=== PATIENT | male | born 1990 | race Two or more races ===

== ENCOUNTER 2025-02-24 01:24 | Emergency (ER) | payer OTHER ==
[~2025-02-24] VITALS: Ht 170.2 cm; Wt 84.1 kg
[2025-02-24] MEDS ORDERED: DIPH25CA66 PO (01:48)
--- NOTE | 2025-02-24 01:48 | ED.PDOC ---
History of Present Illness HPI Comments Patient is a 34-year-old male who was brought to the ED by EMS due to concerns of multiple bee stings proximally 1/2 hour prior to arrival. Patient states he lives going home when he came across a bee hive and got stung numerous times about his chest back and head. Quick evaluation was unremarkable for any bee stings or retained stingers in the torso. Patient appears diaphoretic and may be on methamphetamine. Chief Complaint: Anxiety Time Seen by MD: 01:35 Reviewed Notes: Nurses Notes, Clerical Office Worker Notes Allergies: Coded Allergies: NO KNOWN ALLERGIES (Unverified , 02/24/25) Home Meds Active Scripts Ondansetron Odt 4MG Tab (ZOFRAN PO) 4 Mg Tb, 4 MG PO TID PRN, #20 TAB Prn nausea/vomiting ODT TAB-DISSOLVE IN MOUTH, THEN SWALLOW Prov:ANGIE BREEN MD 02/24/25 Diphenhydramine Hcl (Benadryl Allergy) 25 Mg Cap, 1 CAP PO Q8HP PRN, #20 CAP 0 Refills Prov:DELMAR SALDIVAR PAC 02/24/25 Information Source: Patient, Emergency Med Personnel Mode of Arrival: EMS Severity: Moderate Timing: Minutes Duration: Since onset Prehospital treatment: Treatment Past Medical History PAST MEDICAL HISTORY: Denies Surgical History: Denies all surgeries Family History Family History: Reviewed,noncontributory to illness, No family hx of Cancer, No family hx of DM, No family hx of Heart lizzy, No family hx of HTN, No family hx ofKidney lizzy, No family hx of Liver lizzy, No family hx of Lung lizzy, No family hx of Stroke Social History Smoker: Non-Smoker Alcohol: Denies ETOH Use Drugs: Denies Drug Use Lives In: Home Constitutional: denies: chills, diaphoresis, fatigue, fever, malaise, sweats, weakness, others EENTM: denies: blurred vision, double vision, ear bleeding, ear discharge, ear drainage, ear pain, ear ringing, eye pain, eye redness, hearing loss, mouth pain, mouth swelling, nasal discharge, nose bleeding, nose congestion, nose pa in, photophobia, tearing, throat pain, throat swelling, voice changes, others Respiratory: denies: cough, hemoptysis, orthopnea, SOB at rest, shortness of breath, SOB with excertion, stridor, wheezing, others Cardiovascular: denies: chest pain, dizzy spells, diaphoresis, Dyspnea on exertion, edema, irregular heart beat, left arm pain, lightheadedness, palpitations, PND, syncope, others Gastrointestinal: denies: abdomen distended, abdominal pain, blood streaked bowels, constipated, diarrhea, dysphagia, difficulty swallowing, hematemesis, melena, nausea, poor appetite, poor fluid intake, rectal bleeding, rectal pain, vomiting, others Genitourinary: denies: burning, dysuria, flank pain, frequency, hematuria, incontinence, penile discharge, penile sore, pain, testicle pain, testicle swelling, urgency, others Neurological: denies: dizziness, fainting, headache, left sided numbness, left sided weakness, numbness, paresthesia, pre-existing deficit, right sided numbness, right sided weakness, seizure, speech problems, tingling, tremors, weakness, others Musculoskeletal: denies: back pain, gout, joint pain, joint swelling, muscle pain, muscle stiffness, neck pain, others Integumetry: reports: others (Bee stings to chest, back and head.); denies: bruises, change in color, change in hair/nails, dryness, laceration, lesions, lumps, rash, wounds Allergic/Immunocompromised: denies: Difficulty Healing, Frequent Infections, Hives, Itching, others Hematologic/Lymphatic: denies: anemia, blood clots, easy bleeding, easy bruising, swollen glands, others Endocrine: denies: excessive hunger, excessive sweating, excessive thirst, excessive urination, flushing, intolerance to cold, intolerance to heat, unexplained weight gain, unexplained weight loss, others Psychiatric: denies: anxiety, bipolar disorder, depression, hopeless, panic disorder, schizophrenia, sleepless, suicidal, others Physical Exam General Appearance: Moderate Distress ([id number] distress at time of evaluation. Patient appears very anxious. Patient may be on methamphetamines.), Normal HEENT: Normal ENT Inspection, Pharynx Normal, TMs Normal Neck: Full Range of Motion, Non-Tender, Normal, Normal Inspection Respiratory: Chest Non-Tender, Lungs Clear, No Accessory Muscle Use, No Respiratory Distress, Normal Breath Sounds Cardiovascular: No Edema, No JVD, No Murmur, No Gallop, Normal Peripheral Pulses, Regular Rate/Rhythm Breast Exam: Deferred Gastrointestinal: No Organomegaly, Non Tender, No Pulsatile Mass, Normal Bowel Sounds, Soft Genitalia: Deferred Pelvic: Deferred Rectal: Deferred Extremities: No calf tenderness, Normal capillary refill, Normal inspection, Normal range of motion, Non-tender, No pedal edema Neurologic: Alert, No Motor Deficits, Normal Affect, Normal Mood, No Sensory Deficits Cerebellar Function: NOT DONE Reflexes: NOT DONE Skin: Other (She was unremarkable for any signs of bee stings or retained stingers throughout the chest, back or head.) Lymphatic: No Adenopathy Was a procedure done? Was a procedure done?: No Differential Dx Considerations may include: [place], allergic reaction, anxiety X-Ray, Labs, Meds, VS Vital Signs Date Time Temp Pulse Resp B/P (MAP) Pulse Ox O2 Delivery O2 Flow Rate FiO2 02/24/25 06:07 50 21 95 Nasal Cannula 3.0 02/24/25 04:49 97.8 50 21 130/57 (81) 95 97.8 02/24/25 02:35 67 18 134/66 (88) 97 02/24/25 01:32 98.1 80 18 139/91 98 98.1 Current Medications Medications (Trade) Dose Ordered Sig/Luis Daniel Route Start Time Stop Time Status Last Admin Dexamethasone Sodium Phosphate (Decadron Injection) 10 mg ONCE ONCE IM 02/24/25 01:45 02/24/25 01:46 DC 02/24/25 02:45 Metoclopramide HCl (Reglan Injection) 10 mg ONCE ONCE IM 02/24/25 01:45 02/24/25 01:46 DC 02/24/25 02:45 Diphenhydramine HCl (Benadryl Injection) 25 mg ONCE ONCE IM 02/24/25 01:45 02/24/25 01:46 DC 02/24/25 02:44 Sodium Chloride 2,000 ml @ 1,000 mls/hr Q2H ONCE IV 02/24/25 05:00 02/24/25 06:09 DC 02/24/25 05:08 Ondansetron HCl (Zofran) 8 mg ONCE ONCE IV 02/24/25 05:00 02/24/25 05:01 DC 02/24/25 05:07 Lorazepam (Ativan Inj) 1 mg ONCE ONCE IV 02/24/25 05:00 02/24/25 05:01 DC 02/24/25 05:08 X-Ray, Labs, Meds, VS Comment Patient was given a dose of dexamethasone and a shot of Toradol as well as Benadryl. Patient will remain in the ED until he is stable then can be discharged home with a prescription medication. Addendum by Dr. Janelle Reyes: On re-evaluation, patient was having nausea, vomiting and persistent anxiety. I ordered the following for the patient: 2 L 0.9 normal saline IV bolus, Zofran 8 mg IV, Ativan 1 mg IV, with improvement of the patient's symptoms. Time of 1ST Reevaluation: 01:46 Reevaluation 1ST: Improved Consultation: PCP Patient Education/Counseling: Diagnosis, Treatment Family Education/Counseling: Diagnosis, Treatment SEPSIS Sepsis Screen Date sepsis recognized/suspect: Feb 24, 2025 Time Sepsis recognized/suspect: 012 Recent Procedure: No On Antibiotic Therapy: No Respiratory Rate >20: No Heart Rate >90: No Temp<36 C (96.8 F) or >38.3 C: No SBP <90 or MAP <65 mmHG: No New Acute Mental Status Change: No Is the patient on CPAP, BIPAP,: No Vital Signs Date Time Temp Pulse Resp B/P (MAP) Pulse Ox O2 Delivery O2 Flow Rate FiO2 02/24/25 06:07 50 21 95 Nasal Cannula 3.0 02/24/25 04:49 97.8 50 21 130/57 (81) 95 97.8 02/24/25 02:35 67 18 134/66 (88) 97 02/24/25 01:32 98.1 80 18 139/91 98 98.1 Medications Medications Dose Ordered Sig/Luis Daniel Route Start Time Stop Time Status Last Admin Dose Admin Dexamethasone Sodium Phosphate 10 mg ONCE ONCE IM 02/24/25 01:45 02/24/25 01:46 DC 02/24/25 02:45 Diphenhydramine HCl 25 mg ONCE ONCE IM 02/24/25 01:45 02/24/25 01:46 DC 02/24/25 02:44 Lorazepam 1 mg ONCE ONCE IV 02/24/25 05:00 02/24/25 05:01 DC 02/24/25 05:08 Metoclopramide HCl 10 mg ONCE ONCE IM 02/24/25 01:45 02/24/25 01:46 DC 02/24/25 02:45 Ondansetron HCl 8 mg ONCE ONCE IV 02/24/25 05:00 02/24/25 05:01 DC 02/24/25 05:07 Sodium Chloride 2,000 ml @ 1,000 mls/hr Q2H ONCE IV 02/24/25 05:00 02/24/25 06:09 DC 02/24/25 05:08 Departure 1 Departure Time of Disposition: 01:47 Impression: Primary Impression: Bee sting Additional Impression: Anxiety Disposition: HOME / SELF CARE / HOMELESS Condition: Stable Additional Instructions: Advise utilizing Benadryl as needed for symptomatic relief. e-Prescriptions Ondansetron Odt 4MG Tab (ZOFRAN PO) 4 Mg Tb 4 MG PO TID PRN, #20 TAB Prn nausea/vomiting ODT TAB-DISSOLVE IN MOUTH, THEN SWALLOW Prov: ANGIE BREEN MD 02/24/25 Diphenhydramine Hcl (Benadryl Allergy) 25 Mg Cap 1 CAP PO Q8HP PRN, #20 CAP 0 Refills Prov: DELMAR SALDIVAR PAC 02/24/25 Discharged With: Self, Friend Critical Care Note Critical Care Time?: No Stability Stability form required: No Heart Score Heart Score: Heart Score Response (Comments) Value History N/A 0 EKG N/A 0 Age N/A 0 Risk Factors N/A 0 Troponin N/A 0 Total 0 DELMAR SALDIVAR PAC Feb 24, 2025 01:48 ANGIE BREEN MD Feb 24, 2025 07:18
[2025-02-24] MEDS: diphenhdrAMINE HCL 50 MG/1 ML VL IM ONE (02:44)
[2025-02-24] MEDS: METOCLOPRAMIDE HCL 5MG/ml INJ 2ml VIAL IM ONE (02:45)
[2025-02-24 04:49] VITALS: BP 130/57; TEMP 97.8
[2025-02-24] MEDS: ONDANSETRON HCL 4 MG/2 ML VIAL IV ONE (05:07)
[2025-02-24] MEDS: LORazepam 2MG/ML-1ML VIAL IV ONE (05:08)
[2025-02-24] MEDS: SODIUM CHLORIDE 0.9% 2,000 ML IV ONE (05:08)
[2025-02-24] MEDS ORDERED: ZOFR4T PO (05:50)
[2025-02-24 06:07] VITALS: PULSE 50; RESP 21; O2SAT 95
== END 2025-02-24 06:10 | disposition home or self-care (01) ==
LOC: EDBD 01:24 → ER 01:24
DX: T63.441A Toxic effect of venom of bees, accidental (unintentional), initial encounter (principal); F41.9 Anxiety disorder, unspecified; Z79.899 Other long term (current) drug therapy
CPT/HCPCS: 82947; 96361; 96372; 96374; 96375; 99284; J1100; J1200; J2060; J2405; J2765; J7030